=== PATIENT | male | born 1980 | race Hispanic/Latino ===

== ENCOUNTER 2017-11-06 13:42 | Outpatient (CLI) | payer OTHER ==
--- NOTE | 2017-11-06 16:05 | XRay Report ---
XRAY CHEST TWO VIEWS: 11/06/17 13:42:00 CLINICAL: Cough.Bronchitis. COMPARISON: None FINDINGS: Normal heart and pulmonary vasculature. The lungs are normally expanded and clear.The bones and soft tissues are unremarkable. IMPRESSION: Normal chest.
== END 2017-11-06 13:43 | disposition home or self-care (01) ==
LOC: SPVIMAG 13:42
PROVIDERS: ATTEND Internal Medicine
DX: J40 Bronchitis, not specified as acute or chronic (principal)
CPT/HCPCS: 71046